=== PATIENT | male | born 1980 | race Caucasian/White ===

== ENCOUNTER 2017-09-12 22:50 | Emergency (ER) | payer OTHER ==
[~2017-09-12] VITALS: Ht 177.8 cm; Wt 83.8 kg
[~2017-09-12 22:50] MED LIST: MESA400C3 PO; METO-292 PO; ONDA4TAB6 PO
[2017-09-12] MEDS ORDERED: SULF1TAB49 PO (23:44)
[2017-09-12] MEDS ORDERED: CEPH500C5 PO (23:44)
[2017-09-12 23:51] VITALS: BP 130/80
== END 2017-09-12 23:53 | disposition home or self-care (01) ==
LOC: ER 22:51
DX: L02.413 Cutaneous abscess of right upper limb (principal); L03.113 Cellulitis of right upper limb; G89.29 Other chronic pain; K21.9 Gastro-esophageal reflux disease without esophagitis; F12.10 Cannabis abuse, uncomplicated; Z88.5 Allergy status to narcotic agent
CPT/HCPCS: 99283

== ENCOUNTER 2018-02-10 06:06 | Emergency (ER) | payer OTHER ==
[~2018-02-10 06:06] MED LIST changes: +CEPH500C5 PO
[2018-02-11] MEDS ORDERED: CEPH-571 PO (12:10)
== END 2018-02-10 06:08 | disposition left against medical advice (07) ==
LOC: ER 06:06
DX: M79.672 Pain in left foot (principal); Z53.21 Procedure and treatment not carried out due to patient leaving prior to being seen by health care provider

== ENCOUNTER 2018-02-11 09:15 | Emergency (ER) | payer MEDICAID, OTHER ==
[~2018-02-11] VITALS: Ht 604 cm; Wt 79.5 kg
[2018-02-11 09:51] LABS: BASOPHILS % (AUTO) 0.4 % (0-1); EOSINOPHILS # (AUTO) 0.1 X10'3 (0-0.9); EOSINOPHILS % (AUTO) 1.3 % (0-6); HEMATOCRIT 42.4 % (42.0-52.0); HEMOGLOBIN 14.3 g/dl (14.0-17.9); LYMPHOCYTES # (AUTO) 0.9 X10'3 (1.1-4.8); LYMPHOCYTES % (AUTO) 12.8 % (21-51); MEAN CORPUSCULAR HGB CONC 33.7 % (33.0-36.5); MEAN CORPUSCULAR VOLUME 88.9 FL (78-98); MEAN PLATELET VOLUME 7.6 FL (7.4-10.4); MONOCYTES # (AUTO) 0.5 X10'3 (0-0.9); MONOCYTES % (AUTO) 6.3 % (2-12); NEUTROPHILS # (AUTO) 5.9 X10'3 (1.8-7.7); NEUTROPHILS % (AUTO) 79.2 % (42-75); PLATELET COUNT 274 X10'3 (140-440); RED BLOOD COUNT 4.77 X10'6 (4.70-6.10); RED CELL DISTRIBUTION WIDTH 13.2 % (11.5-14.5); WHITE BLOOD COUNT 7.4 X10'3 (4.5-11.0)
[2018-02-11 10:19] LABS: ALANINE AMINOTRANSFERASE 41 U/L (12-78); ALBUMIN 3.3 G/DL (3.4-5.0); ALBUMIN/GLOBULIN RATIO 0.9 (1.1-1.5); ALKALINE PHOSPHATASE 90 IU/L (46-116); ANION GAP 6 (8-16); ASPARTATE AMINO TRANSFERASE 19 U/L (10-37); BILIRUBIN,TOTAL 0.3 MG/DL (0.1-1.0); BLOOD UREA NITROGEN 13 MG/DL (7-18); BUN/CREATININE RATIO 14.1 (5.4-32.0); CALCIUM 8.8 MG/DL (8.5-10.1); CHLORIDE 100 MMOL/L (99-107); CREATININE 0.92 MG/DL (0.60-1.10); GLUCOSE 97 MG/DL (70-104); POTASSIUM 3.9 MMOL/L (3.5-5.1); SODIUM 136 MMOL/L (135-145); TOTAL CARBON DIOXIDE 30.1 MMOL/L (24-32); TOTAL PROTEIN 6.8 G/DL (6.4-8.2); eGFR > 90 ML/MIN
[2018-02-11 10:27] LABS: D-DIMER 0.63 MG/L FEU (0-0.50); INR 0.9 INR; PARTIAL THROMBOPLASTIN TIME 28 SECONDS (22-32); PROTHROMBIN TIME 9.6 SECONDS (9.0-12.0)
[2018-02-11 10:50] LABS: URINE AMPHETAMINE SCREEN POSITIVE (Neg); URINE BARBITUATE SCREEN NEGATIVE (Neg); URINE BENZODIAZEPINES SCREEN POSITIVE (Neg); URINE CANNABINOID SCREEN POSITIVE (Neg); URINE COCAINE SCREEN NEGATIVE (Neg); URINE METHADONE SCREEN NEGATIVE (Neg); URINE OPIATE SCREEN POSITIVE (Neg); URINE PHENCYCLIDINE SCREEN NEGATIVE (Neg)
[2018-02-11] MEDS ORDERED: iohexol 350MG/ML 100ml bottle IV ONE (11:06)
[2018-02-11] MEDS ORDERED: verapamil 2.5 mg/ml inj IV ONE (11:30)
[2018-02-11] MEDS ORDERED: CEPH-571 PO (12:10)
[2018-02-11] MEDS ORDERED: CefTRIAXone 1000mg IM Kit (w/lidocaine diluent) IM ONE (12:10)
[2018-02-11 12:34] VITALS: BP 151/98
== END 2018-02-11 12:35 | disposition home or self-care (01) ==
LOC: ER 09:15
DX: L03.116 Cellulitis of left lower limb (principal); S60.512A Abrasion of left hand, initial encounter; S60.511A Abrasion of right hand, initial encounter; S80.812A Abrasion, left lower leg, initial encounter; S80.811A Abrasion, right lower leg, initial encounter; K21.9 Gastro-esophageal reflux disease without esophagitis; G89.29 Other chronic pain; M54.9 Dorsalgia, unspecified; F12.90 Cannabis use, unspecified, uncomplicated; Z88.6 Allergy status to analgesic agent; X58.XXXA Exposure to other specified factors, initial encounter; Y93.9 Activity, unspecified; Y92.89 Other specified places as the place of occurrence of the external cause; Y99.8 Other external cause status
CPT/HCPCS: 36415; 71045; 71275; 80053; 80305; 83605; 83880; 84484; 85025; 85379; 85610; 85730; 87040; 93005; 93971; 96372; 99285; J0696; J7030; Q9967

== ENCOUNTER 2018-04-26 11:42 | Emergency (ER) | payer MEDICAID, OTHER ==
[~2018-04-26] VITALS: Ht 177.8 cm; Wt 79.0 kg
[~2018-04-26 11:42] MED LIST changes: +CEPH-571 PO
[2018-04-26] MEDS ORDERED: DOXYCYCLINE 100MG CAPSULE PO STA (12:53)
[2018-04-26] MEDS ORDERED: ondansetron 4mg rapidly disintigrating tab PO ONE (12:55)
[2018-04-26] MEDS ORDERED: ketorolac trometh inj. 60 MG/2 ML VIAL IM ONE (12:55)
[2018-04-26] MEDS ORDERED: acetaminophen 325mg tablet PO ONE (12:55)
[2018-04-26] MEDS ORDERED: cephalexin 250mg capsule PO ONE (12:55)
[2018-04-26] MEDS ORDERED: LIDOcaine 1.5% w/epinephrine 1:200,000 5ml ampul IJ ONE (12:55)
[2018-04-26] MEDS ORDERED: LIDOcaine 1% w/EPI 1:100,000 30ml vial (MDV) IJ ONE (13:15)
[2018-04-26 13:23] VITALS: BP 113/68
[2018-04-26] MEDS ORDERED: CEPH-572 PO (14:04)
[2018-04-26] MEDS ORDERED: ONDA8TAB9 PO (14:04)
[2018-04-26] MEDS ORDERED: DOXY100C43 PO (14:04)
== END 2018-04-26 14:15 | disposition home or self-care (01) ==
LOC: ER 11:45
DX: L02.212 Cutaneous abscess of back [any part, except buttock and flank] (principal); G89.29 Other chronic pain; K21.9 Gastro-esophageal reflux disease without esophagitis; F12.90 Cannabis use, unspecified, uncomplicated; Z88.5 Allergy status to narcotic agent; Z79.2 Long term (current) use of antibiotics; Z79.899 Other long term (current) drug therapy
CPT/HCPCS: 10060; 96372; 99284; J1885; J3490

== ENCOUNTER 2018-06-04 09:28 | Emergency (ER) | payer MEDICAID ==
[~2018-06-04] VITALS: Ht 177.8 cm; Wt 81.8 kg
[~2018-06-04 09:28] MED LIST changes: +ONDA8TAB9 PO
[2018-06-04 09:31] VITALS: BP 133/88
[2018-06-04] MEDS ORDERED: COROTSUS OT (09:45)
[2018-06-04] MEDS ORDERED: AMOX-101 PO (09:49)
[2018-06-04] MEDS ORDERED: neomy sulf/polymyx B sulf/HC 10ml otic suspension LEFT EAR ONE (09:55)
== END 2018-06-04 10:13 | disposition home or self-care (01) ==
LOC: ER 09:29
DX: H66.92 Otitis media, unspecified, left ear (principal); H60.92 Unspecified otitis externa, left ear; K21.9 Gastro-esophageal reflux disease without esophagitis; G89.29 Other chronic pain; F17.210 Nicotine dependence, cigarettes, uncomplicated; F12.90 Cannabis use, unspecified, uncomplicated; Z88.5 Allergy status to narcotic agent; Z79.2 Long term (current) use of antibiotics; Z79.899 Other long term (current) drug therapy
CPT/HCPCS: 82948; 99283

== ENCOUNTER 2018-06-28 13:33 | Emergency (ER) | payer MEDICAID ==
[~2018-06-28] VITALS: Ht 177.8 cm; Wt 84.3 kg
[~2018-06-28 13:33] MED LIST changes: +AMOX-101 PO; +COROTSUS OT
[2018-06-28 13:40] VITALS: BP 116/79
== END 2018-06-28 16:43 | disposition left against medical advice (07) ==
LOC: ER 13:33
DX: L02.414 Cutaneous abscess of left upper limb (principal); Z53.21 Procedure and treatment not carried out due to patient leaving prior to being seen by health care provider

== ENCOUNTER 2018-08-20 17:21 | Emergency (ER) | payer MEDICAID ==
[~2018-08-20] VITALS: Ht 177.8 cm; Wt 90.0 kg
[~2018-08-20 17:21] MED LIST changes: -AMOX-101 PO
[2018-08-20 17:43] VITALS: BP 131/95
[2018-08-20] MEDS ORDERED: SULF1TAB49 PO (19:35)
== END 2018-08-20 19:45 | disposition home or self-care (01) ==
LOC: ER 17:22
DX: L02.413 Cutaneous abscess of right upper limb (principal); K21.9 Gastro-esophageal reflux disease without esophagitis; G89.29 Other chronic pain; F12.90 Cannabis use, unspecified, uncomplicated; Z88.5 Allergy status to narcotic agent; Z79.899 Other long term (current) drug therapy
CPT/HCPCS: 99283

== ENCOUNTER 2018-12-12 14:57 | Emergency (ER) | payer MEDICAID ==
[~2018-12-12] VITALS: Ht 180.3 cm; Wt 87.0 kg
[~2018-12-12 14:57] MED LIST changes: -CEPH500C5 PO
[2018-12-12 15:07] VITALS: BP 118/79
[2018-12-12] MEDS ORDERED: CEPH-572 PO (15:31)
[2018-12-12] MEDS ORDERED: MUPI22OI30 TOP (15:31)
== END 2018-12-12 17:15 | disposition home or self-care (01) ==
LOC: ER 14:58
DX: S00.06XA Insect bite (nonvenomous) of scalp, initial encounter (principal); L02.811 Cutaneous abscess of head [any part, except face]; L03.811 Cellulitis of head [any part, except face]; K21.9 Gastro-esophageal reflux disease without esophagitis; G89.29 Other chronic pain; F12.90 Cannabis use, unspecified, uncomplicated; Z88.5 Allergy status to narcotic agent; Z79.899 Other long term (current) drug therapy; W57.XXXA Bitten or stung by nonvenomous insect and other nonvenomous arthropods, initial encounter; Y93.89 Activity, other specified; Y92.89 Other specified places as the place of occurrence of the external cause; Y99.8 Other external cause status
CPT/HCPCS: 99283

== ENCOUNTER 2019-05-10 11:17 | Emergency (ER) | payer MEDICAID ==
[~2019-05-10] VITALS: Ht 177.8 cm; Wt 80.0 kg
[2019-05-10] MEDS ORDERED: NAPR-56 PO (13:31)
[2019-05-10] MEDS ORDERED: METH-360 PO (13:31)
[2019-05-10] MEDS ORDERED: ketorolac tromethamine 15mg/ml inj. IM ONE (13:35)
[2019-05-10] MEDS ORDERED: orphenadrine citrate 60mg/2ml inj. IM ONE (13:35)
[2019-05-10 13:56] VITALS: BP 132/69
== END 2019-05-10 13:55 | disposition home or self-care (01) ==
LOC: ER 11:18
DX: S39.012A Strain of muscle, fascia and tendon of lower back, initial encounter (principal); S29.012A Strain of muscle and tendon of back wall of thorax, initial encounter; K21.9 Gastro-esophageal reflux disease without esophagitis; G89.29 Other chronic pain; F12.90 Cannabis use, unspecified, uncomplicated; Z88.5 Allergy status to narcotic agent; Z79.2 Long term (current) use of antibiotics; Z79.899 Other long term (current) drug therapy; X58.XXXA Exposure to other specified factors, initial encounter; Y93.89 Activity, other specified; Y92.89 Other specified places as the place of occurrence of the external cause; Y99.8 Other external cause status
CPT/HCPCS: 96372; 99283; J1885; J2360

== ENCOUNTER 2019-07-21 20:41 | Emergency (ER) | payer MEDICAID ==
[~2019-07-21] VITALS: Ht 180.3 cm; Wt 90.7 kg
[~2019-07-21 20:41] MED LIST changes: +METH-360 PO
[2019-07-21] MEDS ORDERED: normal saline 1000ML IV soln IVB ONE (21:00)
[2019-07-21] MEDS ORDERED: ondansetron/PF 4mg/2ml inj IV ONE (21:00)
[2019-07-21] MEDS ORDERED: iohexol 300mg/ml 100ml inj. ONE (21:06)
--- NOTE | 2019-07-21 21:06 | NUR ---
performing ultrasound at bedside
[2019-07-21] MEDS: morphine 4 MG/ML inj SYRINge IV PRN ×2 (21:07→21:57)
[2019-07-21 21:13] LABS: BASOPHILS % (AUTO) 0.5 % (0-1); EOSINOPHILS # (AUTO) 0.2 X10'3 (0-0.9); EOSINOPHILS % (AUTO) 1.8 % (0-6); HEMATOCRIT 45.8 % (42.0-52.0); HEMOGLOBIN 15.7 g/dl (14.0-17.9); LYMPHOCYTES # (AUTO) 1.7 X10'3 (1.1-4.8); MEAN CORPUSCULAR HEMOGLOBIN 30.6 PG (27.0-31.0); MEAN CORPUSCULAR HGB CONC 34.2 g/dL (33.0-36.5); MEAN CORPUSCULAR VOLUME 89.4 FL (78-98); MEAN PLATELET VOLUME 7.8 FL (7.4-10.4); MONOCYTES # (AUTO) 0.8 X10'3 (0-0.9); MONOCYTES % (AUTO) 8.6 % (2-12); NEUTROPHILS # (AUTO) 6.3 X10'3 (1.8-7.7); NEUTROPHILS % (AUTO) 70.1 % (42-75); PLATELET COUNT 198 X10'3 (140-440); RED BLOOD COUNT 5.12 X10'6 (4.70-6.10); RED CELL DISTRIBUTION WIDTH 13.9 % (11.5-14.5); WHITE BLOOD COUNT 8.9 X10'3 (4.5-11.0)
--- NOTE | 2019-07-21 21:18 | NUR ---
PT TO CT WITH HAYLEE DE LA VEGA
[2019-07-21 21:23] LABS: ETHANOL < 0.010 GM/DL (0.0-0.010)
--- NOTE | 2019-07-21 21:55 | NUR ---
PT BACK FROM CT AND IN RM GETTING PLAIN FILMS
[2019-07-21 22:00] LABS: ALANINE AMINOTRANSFERASE 33 U/L (12-78); ALBUMIN 4.2 G/DL (3.4-5.0); ALBUMIN/GLOBULIN RATIO 1.3 (1.1-1.5); ALKALINE PHOSPHATASE 75 IU/L (46-116); ANION GAP 10 (8-16); ASPARTATE AMINO TRANSFERASE 24 U/L (10-37); BILIRUBIN,TOTAL 0.3 MG/DL (0.1-1.0); BLOOD UREA NITROGEN 14 MG/DL (7-18); BUN/CREATININE RATIO 16.3 (5.4-32.0); CALCIUM 9.1 MG/DL (8.5-10.1); CHLORIDE 105 MMOL/L (99-107); CREATININE 0.86 MG/DL (0.60-1.10); GLUCOSE 91 MG/DL (70-104); POTASSIUM 3.6 MMOL/L (3.5-5.1); SODIUM 141 MMOL/L (135-145); TOTAL CARBON DIOXIDE 25.7 MMOL/L (24-32); TOTAL PROTEIN 7.5 G/DL (6.4-8.2); eGFR > 90 ML/MIN
--- NOTE | 2019-07-21 22:02 | NUR ---
[facility] CONTACTED - REPORT#[id number]
[2019-07-21] MEDS ORDERED: HYDROcodone/acetaminophen 10/325mg tab PO ONE (22:05)
--- NOTE | 2019-07-21 22:05 | NUR ---
PT OFF TRAUMA STATUS PER MD MILNER
[2019-07-21] MEDS ORDERED: ORPH100T2 PO (23:38)
[2019-07-21] MEDS ORDERED: ONDA4TAB6 PO (23:38)
[2019-07-21] MEDS ORDERED: HYDR-4353 PO (23:38)
[2019-07-21 23:40] LABS: CLARITY,URINE CLEAR (Clear); COLOR,URINE YELLOW (Yellow); GLUCOSE, URINE NEGATIVE (Neg); KETONES,URINE 15 mg/dl (Neg); LEUKOCYTE ESTERASE ,URINE NEGATIVE (Neg); NITRITES, URINE NEGATIVE (Neg); OCCULT BLOOD,URINE NEGATIVE (Neg); PROTEIN,URINE TRACE mg/dl (Neg); UROBILINOGEN,URINE 0.2 E.U/dL (0.2-1.0)
[2019-07-21] MEDS ORDERED: proCHLORperazine 10 MG/2 ml inj IV ONE (23:40)
[2019-07-21 23:46] LABS: UA COLLECTION TYPE VOIDED
[2019-07-21 23:48] LABS: BACTERIA,URINE NONE SEEN /HPF (Neg); RBC,URINE NONE SEEN /HPF (0-2); SQUAMOUS EPITHELIAL CELL,UR FEW /LPF (FEW); WBC,URINE 0-4 /HPF (0-4)
[2019-07-21 23:53] LABS: URINE AMPHETAMINE SCREEN NEGATIVE (Neg); URINE BARBITUATE SCREEN NEGATIVE (Neg); URINE BENZODIAZEPINES SCREEN NEGATIVE (Neg); URINE CANNABINOID SCREEN POSITIVE (Neg); URINE COCAINE SCREEN NEGATIVE (Neg); URINE METHADONE SCREEN NEGATIVE (Neg); URINE OPIATE SCREEN POSITIVE (Neg); URINE PHENCYCLIDINE SCREEN NEGATIVE (Neg)
[2019-07-22 00:55] VITALS: BP 118/71
== END 2019-07-22 01:00 | disposition home or self-care (01) ==
LOC: ER 20:43
DX: S16.1XXA Strain of muscle, fascia and tendon at neck level, initial encounter (principal); S50.02XA Contusion of left elbow, initial encounter; S80.02XA Contusion of left knee, initial encounter; S50.812A Abrasion of left forearm, initial encounter; R10.9 Unspecified abdominal pain; K21.9 Gastro-esophageal reflux disease without esophagitis; G89.29 Other chronic pain; R51 Headache; F17.200 Nicotine dependence, unspecified, uncomplicated; Z88.5 Allergy status to narcotic agent; Z79.899 Other long term (current) drug therapy; V29.9XXA Motorcycle rider (driver) (passenger) injured in unspecified traffic accident, initial encounter; Y93.89 Activity, other specified; Y92.89 Other specified places as the place of occurrence of the external cause; Y99.8 Other external cause status
CPT/HCPCS: 36415; 70450; 71045; 71260; 72125; 73080; 73564; 74177; 80053; 80305; 80320; 81001; 85025; 86885; 86900; 86901; 93005; 96374; 96375; 96376; 99285; J0780; J2270; J2405; J7030; Q9967

== ENCOUNTER 2020-09-30 08:56 | Emergency (ER) | payer MEDICAID ==
[~2020-09-30] VITALS: Ht 177.8 cm; Wt 86.4 kg
[~2020-09-30 08:56] MED LIST changes: +ORPH100T2 PO
[2020-09-30] MEDS ORDERED: normal saline 1000ML IV soln IVB ONE ×2 (09:15→10:10)
[2020-09-30] MEDS ORDERED: diphenhydrAMINE 50 mg/ml inj IV ONE (09:20)
[2020-09-30] MEDS ORDERED: proCHLORperazine 10 MG/2 ml inj IV ONE (09:20)
[2020-09-30 09:39] LABS: BASOPHILS # (AUTO) 0.1 X10'3 (0-0.2); BASOPHILS % (AUTO) 0.5 % (0-1); EOSINOPHILS % (AUTO) 0.1 % (0-6); HEMATOCRIT 49.6 % (42.0-52.0); HEMOGLOBIN 17.3 g/dl (14.0-17.9); LYMPHOCYTES # (AUTO) 1.2 X10'3 (1.1-4.8); LYMPHOCYTES % (AUTO) 7.7 % (21-51); MEAN CORPUSCULAR HEMOGLOBIN 31.4 PG (27.0-31.0); MEAN PLATELET VOLUME 7.7 FL (7.4-10.4); MONOCYTES # (AUTO) 1.3 X10'3 (0-0.9); MONOCYTES % (AUTO) 8.5 % (2-12); NEUTROPHILS # (AUTO) 12.5 X10'3 (1.8-7.7); NEUTROPHILS % (AUTO) 83.2 % (42-75); PLATELET COUNT 209 X10'3 (140-440); RED BLOOD COUNT 5.51 X10'6 (4.70-6.10); RED CELL DISTRIBUTION WIDTH 13.8 % (11.5-14.5); WHITE BLOOD COUNT 15.1 X10'3 (4.5-11.0)
[2020-09-30 10:03] LABS: ALANINE AMINOTRANSFERASE 28 U/L (12-78); ALBUMIN 4.1 G/DL (3.4-5.0); ALBUMIN/GLOBULIN RATIO 1.3 (1.1-1.5); ALKALINE PHOSPHATASE 76 IU/L (46-116); ANION GAP 14 (8-16); ASPARTATE AMINO TRANSFERASE 13 U/L (10-37); BILIRUBIN,TOTAL 0.9 MG/DL (0.1-1.0); BLOOD UREA NITROGEN 14 MG/DL (7-18); BUN/CREATININE RATIO 15.7 (5.4-32.0); CALCIUM 8.9 MG/DL (8.5-10.1); CHLORIDE 100 MMOL/L (99-107); CREATININE 0.89 MG/DL (0.60-1.10); GLUCOSE 110 MG/DL (70-104); LIPASE 93 U/L (73-393); SODIUM 138 MMOL/L (135-145); TOTAL CARBON DIOXIDE 24.5 MMOL/L (24-32); TOTAL PROTEIN 7.3 G/DL (6.4-8.2); TROPONIN I < 0.04 NG/ML (0.0-0.05); eGFR > 90 ML/MIN
[2020-09-30 10:05] LABS: POTASSIUM 2.7 MMOL/L (3.5-5.1)
[2020-09-30] MEDS ORDERED: POTASSIUM BICARB 20meq eff tab 20 MEQ TABLET.EFF PO STA (10:09)
[2020-09-30] MEDS ORDERED: potassium Cl 10 mEq/100mL bag IV ONE (10:10)
[2020-09-30 10:21] LABS: MAGNESIUM 1.6 MG/DL (1.5-2.4)
[2020-09-30] MEDS ORDERED: iohexol 300mg/ml 100ml inj. ONE (10:50)
--- NOTE | 2020-09-30 11:07 | NUR ---
patietn at ct scan
--- NOTE | 2020-09-30 11:18 | NUR ---
BACK FROM CT SCAN
[2020-09-30] MEDS ORDERED: morphine 4 MG/ML inj SYRINge IV ONE (11:20)
[2020-09-30 11:43] VITALS: BP 160/102
[2020-09-30 11:51] LABS: CLARITY,URINE CLEAR (Clear); COLOR,URINE YELLOW (Yellow); GLUCOSE, URINE NEGATIVE (Neg); KETONES,URINE 15 mg/dl (Neg); LEUKOCYTE ESTERASE ,URINE NEGATIVE (Neg); NITRITES, URINE NEGATIVE (Neg); OCCULT BLOOD,URINE NEGATIVE (Neg); PROTEIN,URINE 30 mg/dl (Neg)
[2020-09-30 11:55] LABS: UA COLLECTION TYPE CLN CATCH MIDSTREAM
[2020-09-30 11:56] LABS: BACTERIA,URINE NONE SEEN /HPF (Neg); MUCUS STRANDS FEW /LPF (Neg); RBC,URINE 0-2 /HPF (0-2); SQUAMOUS EPITHELIAL CELL,UR NONE SEEN /LPF (FEW); WBC,URINE NONE SEEN /HPF (0-4)
[2020-09-30] MEDS ORDERED: ONDA4TAB6 PO (11:57)
[2020-09-30] MEDS ORDERED: POTA20PA40 PO (11:57)
--- NOTE | 2020-09-30 12:48 | NUR ---
PATIENT VERBALIZED THE FOLLOWING EDUCATION. PATIENT VERBALIZED THAT HE WILL ATTEMPT TO WEAN OFF OF MARIJUANA. PATIENT PROVIDED LIST OF PROVIDERS TO OBTAIN PMD FOR FOLLOW UP. DISCUSSED ELEVATED BP AND HE WILL DISCUSS IT WHEN HE GETS A DOCTOR. PATIENT VERBALIZED HOW AND WHEN AND SIDE EFFECTS TO TAKE DISCHARGE MEDICATIONS OF POTASSIUM AND ZOFRAN FOR NAUSEA.
== END 2020-09-30 13:00 | disposition home or self-care (01) ==
LOC: ER 08:57
DX: R10.31 Right lower quadrant pain (principal); E87.6 Hypokalemia; R11.2 Nausea with vomiting, unspecified; K21.9 Gastro-esophageal reflux disease without esophagitis; G89.29 Other chronic pain; Z88.5 Allergy status to narcotic agent; Z79.899 Other long term (current) drug therapy
CPT/HCPCS: 36415; 74177; 80053; 81001; 83605; 83690; 83735; 84484; 85025; 96361; 96365; 96375; 99285; J0780; J1200; J2270; J3480; J7030; Q9967

== ENCOUNTER 2021-07-19 23:34 | Emergency (ER) | payer MEDICAID ==
[~2021-07-19 23:34] MED LIST changes: +POTA20PA40 PO; +calcium chloride 100 MG/1 ML inj IV ONE; +epiNEPHrine 0.1mg/ml 10ml syringe ONE; +sod chloride 0.9% 10ml flush syringe IV ONE; +sodium bicarbonate (8.4%) 1 mEq/ml syringe ONE
[2021-07-19] MEDS ORDERED: naloxone 2mg/2ml inj ONE (23:43)
--- NOTE | 2021-07-20 00:52 | NUR ---
called coronor waiting for there arrival called donor network reference # [id number] this patient is not a donor candidate, wallet,keys and cell phone at bedside code sheet written and placed in basket
--- NOTE | 2021-07-20 01:34 | NUR ---
vikash Alexis arrived signed for patient release took patient to lining printer office
== END 2021-07-20 01:58 ==
LOC: ER 23:34
DX: T40.411A Poisoning by fentanyl or fentanyl analogs, accidental (unintentional), initial encounter (principal); I46.9 Cardiac arrest, cause unspecified; K21.9 Gastro-esophageal reflux disease without esophagitis; G89.29 Other chronic pain; Z88.5 Allergy status to narcotic agent; Z79.2 Long term (current) use of antibiotics; Z79.899 Other long term (current) drug therapy; Y92.89 Other specified places as the place of occurrence of the external cause
CPT/HCPCS: 31500; 36556; 82948; 92950; 96374; 99291; 99292; J0171; J2310; J3490